=== PATIENT | male | born 1995 | race Caucasian/White ===

== ENCOUNTER 2018-01-01 21:02 | Emergency (ER) | payer OTHER ==
[~2018-01-01] VITALS: Ht 177.8 cm; Wt 80.5 kg
[~2018-01-01 21:02] MED LIST: NO HOME MEDS
[2018-01-01] MEDS ORDERED: KEFLEX500 MG PO (23:45)
[2018-01-01] MEDS ORDERED: NORCO 5/3251 TABLET PO (23:45)
[2018-01-02 00:10] VITALS: BP 115/98
== END 2018-01-02 00:10 | disposition home or self-care (01) ==
LOC: EME 21:02
PROC: 0W3Q7ZZ Control Bleeding in Respiratory Tract, Via Natural or Artificial Opening (ICD-10-PCS; principal; 2018-01-01)
DX: R04.0 Epistaxis (principal); S02.2XXA Fracture of nasal bones, initial encounter for closed fracture; W50.0XXA Accidental hit or strike by another person, initial encounter; Y93.66 Activity, soccer
CPT/HCPCS: 70160; 99281; 99284; J3010